=== PATIENT | female | born 2000 | race Two or more races ===

== ENCOUNTER 2020-12-12 14:12 | Emergency (ER) | payer OTHER ==
[~2020-12-12] VITALS: Ht 157.5 cm; Wt 53.6 kg
[2020-12-12 14:14] VITALS: BP 104/76
== END 2020-12-12 14:52 | disposition home or self-care (01) ==
LOC: EMS 14:18
DX: S02.2XXA Fracture of nasal bones, initial encounter for closed fracture (principal); F17.210 Nicotine dependence, cigarettes, uncomplicated; F12.90 Cannabis use, unspecified, uncomplicated; W22.8XXA Striking against or struck by other objects, initial encounter; Y93.89 Activity, other specified; Y92.89 Other specified places as the place of occurrence of the external cause; Y99.8 Other external cause status
CPT/HCPCS: 99281; Z7502